=== PATIENT | male | born 1985 | race African-American/Black ===

== ENCOUNTER 2023-08-30 17:45 | Emergency (ER) | payer SELFPAY ==
[~2023-08-30] VITALS: Ht 180.3 cm; Wt 98.4 kg
[2023-08-30 18:05] VITALS: BP 133/75; PULSE 61; RESP 16; TEMP 98.1; O2SAT 100
== END 2023-08-30 22:21 | disposition home or self-care (01) ==
LOC: ER 17:45
DX: S67.190A Crushing injury of right index finger, initial encounter (principal); W23.0XXA Caught, crushed, jammed, or pinched between moving objects, initial encounter; Y93.89 Activity, other specified; Y92.89 Other specified places as the place of occurrence of the external cause; Y99.8 Other external cause status
CPT/HCPCS: 73140; 99283; Z7610